=== PATIENT | female | born 1950 | race Caucasian/White ===

== ENCOUNTER → 2019-03-12 | Day surgery (SDC) | payer OTHER, BC ==
--- NOTE | 2019-03-14 11:38 | PATH ---
Cytology Non-Gynecological Report Patient Name: RHONDA CREWS [facility]. Rec. #: [id number] /Age/Gender: 1950 (Age: 68) / F Account: [id number] Location: RADIOLOGY INTER Taken: 03/12/2019 Received: 03/12/2019 Reported: 03/14/2019 Physicians: Lopez Lord Specimen(s) Received RIGHT THYROID Clinical History Right thyroid nodule Final Diagnosis THYROID, RIGHT, FINE NEEDLE ASPIRATION: SATISFACTORY FOR EVALUATION B[place] CLASS II: BENIGN SMALL FOLLICULAR CELLS AND COLLOID PRESENT,CONSISTENT WITH A BENIGN FOLLICULAR NODULE. Electronically Signed Sanjana Patel M.D. Gross Description Received are eight direct smears, four of which are air-dried and Diff-Quik stained, and four of which are alcohol fixed and Pap stained. Also received is 20 ml of bloody formalin from which one cellblock is prepared.
== END | disposition home or self-care (01) ==
LOC: JRADIR 09:34
PROVIDERS: ATTEND Specialist
PROC: 0G9K3ZX Drainage of Thyroid Gland, Percutaneous Approach, Diagnostic (ICD-10-PCS; principal; 2019-03-12)
DX: E04.1 Nontoxic single thyroid nodule (principal)
CPT/HCPCS: 76942; 88173; 88305-TC

== ENCOUNTER → 2022-04-22 | Day surgery (SDC) | payer OTHER, BC | END | disposition home or self-care (01) | LOC: JRADIR 09:54 | PROVIDERS: ATTEND Specialist | PROC: 0GBH3ZX Excision of Right Thyroid Gland Lobe, Percutaneous Approach, Diagnostic (ICD-10-PCS; principal; 2022-04-22) | DX: E04.1 Nontoxic single thyroid nodule (principal) | CPT/HCPCS: 10005; 76942; 88173; 88305-TC ==

== ENCOUNTER 2023-10-09 15:55 | Inpatient (IN) | payer OTHER, BC ==
[2023-10-09 16:52] LABS: BASO % 0.3 % (0-2.0); HEMATOCRIT 45.6 % (32.4-45.2); HEMOGLOBIN 15.3 GM/dL (10.7-15.3); LYMPH % 15.5 % (8-40); MCH 29.9 pg (25.7-33.7); MCHC 33.5 g/dl (32.0-36.0); MEAN CELL VOLUME 89.4 fl (80-96); MEAN PLT VOLUME 9.3 fl (7.5-11.1); MONO % 7.1 % (3.8-10.2); NEUT % 77.1 % (42.8-82.8); PLATELET COUNT 260 10^3/uL (134-434); RDW 13.9 % (11.6-15.6); WHITE BLOOD COUNT 13.3 K/mm3 (4.0-10.0)
[2023-10-09 17:01] LABS: INR 1.05 (0.83-1.09); PROTHROMBIN TIME (PATIENT) 11.8 SEC (9.7-13.0)
[2023-10-09 17:09] LABS: POTASSIUM 3.5 mmol/L (3.5-5.1)
[2023-10-09 17:11] LABS: ALBUMIN 3.6 g/dl (3.4-5.0); BLOOD UREA NITROGEN 16.8 mg/dL (7-18); CALCIUM 8.5 mg/dL (8.5-10.1); MAGNESIUM 2.3 mg/dL (1.8-2.4)
[2023-10-09 17:14] LABS: CREATININE 0.7 mg/dL (0.55-1.3)
[2023-10-09 17:16] LABS: BILIRUBIN,TOTAL 0.6 mg/dL (0.2-1); TOT PROT 6.9 g/dl (6.4-8.2)
[2023-10-09 17:19] LABS: N-TERMINAL BNP 1405.3 pg/ml (5-125)
[2023-10-09 18:45] LABS: URINE APPEARANCE CLEAR; URINE BILIRUBIN NEGATIVE (NEGATIVE); URINE COLOR YELLOW; URINE GLUCOSE (UA) NEGATIVE (NEGATIVE); URINE KETONE NEGATIVE (NEGATIVE); URINE LEUK ESTERASE NEGATIVE (NEGATIVE); URINE NITRITE NEGATIVE (NEGATIVE); URINE PROTEIN NEGATIVE (NEGATIVE); URINE UROBILINOGEN 0.2 mg/dL (0.2-1.0)
[2023-10-09] MEDS ORDERED: FUROSEMIDE 40 MG/4 ML INJECTABLE VIAL ONE (19:31)
[2023-10-09] MEDS: FUROSEMIDE 40 MG/4 ML INJECTABLE VIAL IVPUSH ONE (19:40)
[2023-10-09 22:23] LABS: BASO % 0.5 % (0-2.0); EOS % 0.1 % (0-4.5); HEMATOCRIT 45.3 % (32.4-45.2); HEMOGLOBIN 15.4 GM/dL (10.7-15.3); LYMPH % 17.2 % (8-40); MCH 30.2 pg (25.7-33.7); MCHC 33.9 g/dl (32.0-36.0); MEAN CELL VOLUME 89.1 fl (80-96); MEAN PLT VOLUME 9.5 fl (7.5-11.1); MONO % 8.3 % (3.8-10.2); NEUT % 73.9 % (42.8-82.8); PLATELET COUNT 266 10^3/uL (134-434); RBC 5.09 M/mm3 (3.60-5.2); RDW 13.7 % (11.6-15.6); WHITE BLOOD COUNT 13.9 K/mm3 (4.0-10.0)
[2023-10-09 23:25] VITALS: BMI 40.4
[2023-10-10 07:46] LABS: HEMATOCRIT 42.6 % (32.4-45.2); HEMOGLOBIN 14.4 GM/dL (10.7-15.3); MCH 30.1 pg (25.7-33.7); MCHC 33.7 g/dl (32.0-36.0); MEAN CELL VOLUME 89.2 fl (80-96); MEAN PLT VOLUME 9.7 fl (7.5-11.1); PLATELET COUNT 240 10^3/uL (134-434); RBC 4.77 M/mm3 (3.60-5.2); RDW 13.8 % (11.6-15.6); WHITE BLOOD COUNT 9.2 K/mm3 (4.0-10.0)
[2023-10-10 07:55] LABS: POTASSIUM 3.7 mmol/L (3.5-5.1)
[2023-10-10 08:04] LABS: ALBUMIN 3.1 g/dl (3.4-5.0); CALCIUM 8.3 mg/dL (8.5-10.1)
[2023-10-10 08:05] LABS: BLOOD UREA NITROGEN 15.3 mg/dL (7-18); MAGNESIUM 2.3 mg/dL (1.8-2.4)
[2023-10-10 08:07] LABS: CREATININE 0.8 mg/dL (0.55-1.3); LDL CHOLESTEROL (ONLY SJRH) 54 mg/dL (5-100); PHOSPHOROUS 3.2 mg/dL (2.5-4.9)
[2023-10-10 08:09] LABS: BILIRUBIN,TOTAL 0.7 mg/dL (0.2-1); CHOLESTEROL 118 mg/dL (50-200); HDL CHOLESTEROL 56 mg/dL (40-60); TOT PROT 6.2 g/dl (6.4-8.2)
[2023-10-10] MEDS ORDERED: ENOXAPARIN NA (PORCINE) 40 MG/0.4 ML DISP.SYRIN SQ SCH (10:00)
[2023-10-10] MEDS: ENOXAPARIN NA (PORCINE) 40 MG/0.4 ML DISP.SYRIN SQ SCH (11:47)
[2023-10-10] MEDS: FUROSEMIDE 40 MG/4 ML INJECTABLE VIAL IVPUSH ONE (11:47)
[2023-10-10] MEDS: LOSARTAN POTASSIUM 50 MG TABLET PO SCH (11:49)
[2023-10-10 14:19] VITALS: BP 140/67; PULSE 63; RESP 18; TEMP 98.2
[2023-10-11] MEDS ORDERED: ASPIRIN COATED 81 MG TABLET.EC PO SCH (10:00)
[2023-10-11] MEDS ORDERED: ROSUVASTATIN CA 10 MG TABLET PO SCH (22:00)
== END 2023-10-10 16:01 | disposition home or self-care (01) | DRG 291 ==
LOC: JER 15:55 → JERBED 19:25 → J4W 22:37
PROVIDERS: ADMIT Internal Medicine; ATTEND Internal Medicine
DX: I11.0 Hypertensive heart disease with heart failure (principal); I50.33 Acute on chronic diastolic (congestive) heart failure; I24.89 Other forms of acute ischemic heart disease; I25.10 Atherosclerotic heart disease of native coronary artery without angina pectoris; E78.5 Hyperlipidemia, unspecified; R06.09 Other forms of dyspnea
CPT/HCPCS: 0241U-QW; 36415; 71045-TC-FY; 71250-TC; 80053; 80061; 81003; 83036; 83735; 83880; 84100; 84443; 84484; 85025; 85027; 85379; 85610; 85730; 87086; 93005; 93010; 93306-TC; 99285-25